=== PATIENT | female | born 1995 | race Caucasian/White ===

== ENCOUNTER 2016-10-13 18:31 | Emergency (ER) | payer MEDICAID ==
[~2016-10-13] VITALS: Ht 167.6 cm; Wt 92.6 kg
[2016-10-13 18:38] VITALS: BP 121/80
== END 2016-10-13 19:57 | disposition home or self-care (01) ==
LOC: ED 19:51
DX: J01.20 Acute ethmoidal sinusitis, unspecified (principal); J01.00 Acute maxillary sinusitis, unspecified
CPT/HCPCS: 99283

== ENCOUNTER 2018-07-18 13:59 | Day surgery (SDC) | payer OTHER ==
[~2018-07-18] VITALS: Ht 167.6 cm; Wt 82.2 kg
[2018-07-18] MEDS ORDERED: [UNRECOGNIZED DRUG - REMARK] (14:43)
[2018-07-18 14:45] VITALS: BP 118/72
[2018-07-18] MEDS ORDERED: LACTATED RINGERS 1,000 ML IV SCH (15:12)
[2018-07-18] MEDS ORDERED: SILVER NITRATE STICK TP ONE (15:50)
[2018-07-18] MEDS ORDERED: MISOPROSTOL 200 MCG TABLET ONE (15:50)
[2018-07-18] MEDS ORDERED: OXYTOCIN 10 UNITS/ML, 1ML ONE (15:50)
[2018-07-18] MEDS ORDERED: METHYLERGONOVINE 0.2 MG/ML IM ONE (15:50)
[2018-07-18] MEDS ORDERED: SUCCINYLCHOLINE 20 MG/ML, 10ML ONE (16:23)
[2018-07-18] MEDS ORDERED: PROPOFOL 10 MG/ML, 20ML ONE (16:23)
[2018-07-18] MEDS ORDERED: KETOROLAC 30 MG/1 ML ONE (16:23)
[2018-07-18] MEDS ORDERED: ONDANSETRON 2MG/ML, 2ML ONE (16:23)
[2018-07-18] MEDS ORDERED: ROCURONIUM 10 MG/ML,10ML ONE (16:23)
[2018-07-18] MEDS ORDERED: MIDAZOLAM 1 MG/ML, 2ML ONE (16:29)
[2018-07-18] MEDS ORDERED: OXYcodone 5 MG/5 ML ORAL.SOL UDC ONE (17:17)
[2018-07-18] MEDS ORDERED: FENTANYL PF 100 MCG/2ML ONE (17:17)
[2018-07-18] MEDS ORDERED: METOCLOPRAMIDE 5 MG/ML, 2ML IV PRN (17:30)
[2018-07-18] MEDS ORDERED: FENTANYL PF 100 MCG/2ML IV PRN (17:30)
[2018-07-18] MEDS ORDERED: PROMETHAZINE 25 MG/ML, 1ML IV PRN (17:30)
[2018-07-18] MEDS ORDERED: OXYcodone 5 MG/5 ML ORAL.SOL UDC PO PRN (17:30)
[2018-07-18] MEDS ORDERED: LABETALOL 5MG/ML, 20ML IV PRN (17:30)
[2018-07-18] MEDS ORDERED: KETOROLAC 30 MG/1 ML IV PRN (17:30)
[2018-07-18] MEDS ORDERED: ONDANSETRON 2MG/ML, 2ML IVPush PRN (17:30)
[2018-07-18] MEDS ORDERED: HYDROmorphone 1 MG/ML, 1ML IV PRN (17:30)
[2018-07-18] MEDS ORDERED: hydrALAzine 20 MG/ML, 1ML IV PRN (17:30)
[2018-07-18] MEDS ORDERED: MEPERIDINE/PF 25MG/0.5ML IVPush PRN (17:30)
[2018-07-18] MEDS ORDERED: ALBUTEROL SULFATE 2.5 MG/3 ML NPPB PRN (17:30)
== END 2018-07-18 18:55 | disposition home or self-care (01) ==
LOC: OR 13:59
PROVIDERS: ATTEND Obstetrics & Gynecology
DX: O02.1 Missed abortion (principal)
CPT/HCPCS: 59820; 88305; J0330; J1885; J2210; J2250; J2405; J2704; J3010; J7120; J2590